=== PATIENT | female | born 1990 ===

== ENCOUNTER 2022-04-15 11:10 | Inpatient (IN) | payer SELFPAY ==
[2022-04-15] MEDS ORDERED: TERBUTALINE 1 MG/1 ML INJ SUB-Q PRN (12:52)
[2022-04-15] MEDS: LACTATED RINGERS 1,000 ML IV SCH ×3 (13:42→16:02)
[2022-04-15] MEDS ORDERED: LOPERAMIDE 2 MG CAP PO PRN (14:00)
[2022-04-15] MEDS ORDERED: AMPICILLIN/NS 1 GM/50 ML 1 GM/50 ML BAG IV SCH (14:00)
[2022-04-15] MEDS ORDERED: ONDANSETRON 4 MG/2 ML INJ IV PRN ×2 (14:00→18:34)
[2022-04-15] MEDS ORDERED: miSOPROStol 200 MCG TAB PR PRN (14:00)
[2022-04-15] MEDS ORDERED: OXYTOCIN DRIP 30 UNITS/500 ML BAG IV SCH ×3 (14:00→19:00)
[2022-04-15] MEDS ORDERED: fentaNYL 100 MCG/2 ML INJ IV PRN (14:00)
[2022-04-15] MEDS ORDERED: BUTORPHANOL 2 MG/1 ML INJ IV PRN ×2 (14:00)
[2022-04-15] MEDS ORDERED: LIDOCAINE (2%) 20 MG/1 ML VIAL 20 ML MDV INFILTRATI NR (14:00)
[2022-04-15] MEDS ORDERED: METHYLERGONOVINE MALEATE 0.2 MG/ML VIAL IM PRN (14:00)
[2022-04-15] MEDS ORDERED: AMPICILLIN/NS 2 GM/100 ML 2 GM/100 ML BAG IV NR (14:00)
[2022-04-15] MEDS ORDERED: ACETAMINOPHEN 325 MG TAB PO PRN ×2 (14:00→18:34)
[2022-04-15] MEDS ORDERED: ePHEDrine SULFATE 50 MG/1 ML INJ IV PRN ×2 (14:00→14:44)
[2022-04-15] MEDS ORDERED: CARBOPROST TROMETHAMINE 250 MCG/1 ML INJ IM PRN (14:00)
[2022-04-15] MEDS ORDERED: OXYTOCIN 10 UNIT/1 ML INJ IM PRN (14:00)
[2022-04-15] MEDS ORDERED: NALOXONE 0.4 MG/1 ML INJ IV PRN ×2 (14:44→18:34)
[2022-04-15 14:52] LABS: Hematocrit 35.8 % (30.3-42.9); Hemoglobin 11.8 gm/dl (10.1-14.3); Mean Corpuscular HGB Conc 33 % (30-34); Mean Corpuscular Volume 70 fl (79-97); Platelet Count 256 K/mm3 (140-440); Red Blood Count 5.08 M/mm3 (3.65-5.03); Red Cell Distribution Width 14.5 % (13.2-15.2)
[2022-04-15] MEDS ORDERED: fentaNYL-BUPIV 2 MCG/ML-0.125% 200 MCG/100 ML BAG EPIDURAL SCH (15:00)
--- NOTE | 2022-04-15 15:43 | Progress Note ---
Labor Epidural - Labor Epidural Start Time: 15:15 Stop Time: 15:21 Performed by:: ENRIQUE MUELLER Procedure: Epidural Requested for Labor Pain. H&P and PT Chart reviewed and consent obtained. Time out performed and the procedure was explained, all questions answered. Patient was placed in a sitting position with monitors applied. The PTs back was prepped and draped in usual sterile fashion. The Skin was localized with 3 mL of 1% lidocaine at L3-L4. A 17-gauge Touhy epidural needle was advanced to LUIS with saline at 5 cm and no blood/CSF was noted via epidural needle. Epidural catheter was advanced to 13 cm. There was negative aspiration for blood and CSF in the catheter and negative response to a test dose of 3 ml 1.5% lidocaine w/ Epi and a sterile dressing was applied Patient tolerated the procedure well and there were no immediate complications noted.
--- NOTE | 2022-04-15 15:47 | Anesthesia Consultation ---
Anesthesia Consult and Med Hx Date of service: 04/15/22 - Airway Anesthetic Teeth Evaluation: Good ROM Head & Neck: Adequate Mental/Hyoid Distance: Adequate Mallampati Class: Class II Intubation Access Assessment: Probably Good - Pulmonary Exam CTA: Yes - Cardiac Exam Cardiac Exam: RRR - Pre-Operative Health Status ASA Pre-Surgery Classification: ASA2 Proposed Anesthetic Plan: Epidural - Pulmonary Hx Smoking: No Hx Asthma: No - Cardiovascular System Hx Hypertension: No - Central Nervous System Hx Seizures: No CVA: No Hx Psychiatric Problems: No - Endocrine Hx Renal Disease: No Hx Liver Disease: No Hx Thyroid Disease: No - Hematic Hx Anemia: Yes Hx Sickle Cell Disease: No - Other Systems Hx Alcohol Use: No Hx Substance Use: No Hx Cancer: No - Additional Comments Anesthesia Medical History Comments: no hx of anesthetic complications
[2022-04-15] MEDS ORDERED: ceFAZolin/Water 2 GM/20 ML 2 GM/20 ML SYRINGE IV ONE (17:09)
[2022-04-15] MEDS ORDERED: FAMOTIDINE 20 MG/2 ML INJ IV ONE (17:09)
[2022-04-15] MEDS ORDERED: METOCLOPRAMIDE 10 MG/2 ML INJ ONE (17:09)
[2022-04-15] MEDS ORDERED: BICITRA ORAL LIQD 30ML ONE (17:09)
[2022-04-15] MEDS ORDERED: ceFAZolin/STERILE WATER 2 GM/20 ML SYRINGE IV ONE (17:32)
--- NOTE | 2022-04-15 17:48 | History and Physical Report ---
History of Present Illness Date of examination: 04/15/22 (1700) Date of admission: 04/15/22 12:52 Diomedesshilpa Past History - Obstetrical History : 2 Medications and Allergies Allergies Allergy/AdvReac Type Severity Reaction Status Date / Time No Known Allergies Allergy Verified 04/15/22 12:55 Home Medications Medication Instructions Recorded Confirmed Last Taken Type Tablet 1 tab PO DAILY 04/15/22 04/15/22 2 Days Ago History ~04/13/22 Active Meds: Active Medications Acetaminophen (Acetaminophen 325 Mg Tab) 650 mg PO Q4H PRN PRN Reason: Pain, Mild (1-3) Butorphanol Tartrate (Butorphanol 2 Mg/1 Ml Inj) 1 mg IV Q2H PRN PRN Reason: Pain, Moderate(4-6) LABOR PAIN Butorphanol Tartrate (Butorphanol 2 Mg/1 Ml Inj) 2 mg IV Q2H PRN PRN Reason: Pain , Severe (7-10) Carboprost Tromethamine (Carboprost Tromethamine 250 Mcg/1 Ml Inj) 250 mcg IM ONCE PRN PRN Reason: Uterine Bleeding Stop: 04/15/22 23:00 Ephedrine Sulfate (Ephedrine Sulfate 50 Mg/1 Ml Inj) 10 mg IV Q2M PRN PRN Reason: Hypotension Ephedrine Sulfate (Ephedrine Sulfate 50 Mg/1 Ml Inj) 10 mg IV Q2M PRN PRN Reason: Hypotension Last Admin: 04/15/22 15:51 Dose: 10 mg Fentanyl (Fentanyl 100 Mcg/2 Ml Inj) 100 mcg IV Q2H PRN PRN Reason: Pain,Severe (7-10) LABOR PAIN Oxytocin/Sodium Chloride (Pitocin/Ns 30 Unit/500ml) 30 units in 500 mls @ 2 mls/hr IV TITR MENDOZA; Protocol Lactated Ringer's (Lactated Ringers) 1,000 mls @ 125 mls/hr IV DIRECT MENDOZA Last Admin: 04/15/22 16:02 Dose: 125 mls/hr Oxytocin/Sodium Chloride (Pitocin/Ns 30 Unit/500ml) 30 units in 500 mls @ 40 mls/hr IV TITR MENDOZA; Protocol Ampicillin Sodium (Ampicillin/Ns 2 Gm/100 Ml) 2 gm in 100 mls @ 100 mls/hr IV ONCE NR; Protocol Stop: 04/15/22 23:00 Ampicillin Sodium (Ampicillin/Ns 1 Gm/50 Ml) 1 gm in 50 mls @ 100 mls/hr IV Q4H MENDOZA; Protocol Fentanyl/Bupivacaine/Sodium Chlor (Fentanyl-Bupiv 2 Mcg/Ml-0.125%) 200 mcg in 100 mls @ 12 mls/hr EPIDURAL TITR MENDOZA; Protocol Last Admin: 04/15/22 15:54 Dose: 12 mls/hr Lidocaine (Lidocaine (2%) 20 Mg/1 Ml Vial 20 Ml Mdv) 20 ml INFILTRATI ONCE NR Stop: 04/15/22 23:00 Loperamide HCl (Loperamide 2 Mg Cap) 2 mg PO ONCE PRN PRN Reason: give with Hemabate Stop: 04/15/22 23:00 Methylergonovine Maleate (Methylergonovine Maleate 0.2 Mg/Ml Vial) 0.2 mg IM ONCE PRN PRN Reason: Uterine Bleeding Stop: 04/15/22 23:00 Mineral Oil (Mineral Oil 30 Ml Oral Liqd) 30 ml PO QHS PRN PRN Reason: Constipation Misoprostol (Misoprostol 200 Mcg Tab) 800 mcg AK ONCE PRN PRN Reason: Uterine Bleeding Stop: 04/15/22 23:00 Naloxone HCl (Naloxone 0.4 Mg/1 Ml Inj) 0.2 mg IV Q5MIN PRN PRN Reason: Respiratory sedation Ondansetron HCl (Ondansetron 4 Mg/2 Ml Inj) 4 mg IV Q8H PRN PRN Reason: Nausea And Vomiting Oxytocin (Oxytocin 10 Unit/1 Ml Inj) 10 unit IM ONCE PRN PRN Reason: Uterine Bleeding Stop: 04/15/22 23:00 - Vital Signs Vital signs: Vital Signs Pulse Pulse Ox 72 97 04/15/22 11:46 04/15/22 11:46 Temp Pulse Resp BP Pulse Ox 98.6 F 124 H 22 125/63 100 04/15/22 12:59 04/15/22 17:26 04/15/22 12:59 04/15/22 17:04 04/15/22 17:26 Results Result Diagrams: 04/15/22 14:07 Abnormal lab results 04/15/22 Range/Units 14:07 WBC 15.0 H (4.5-11.0) K/mm3 RBC 5.08 H (3.65-5.03) M/mm3 MCV 70 L (79-97) fl MCH 23 L (28-32) pg All other labs normal.
[2022-04-15] MEDS ORDERED: SODIUM CHLORIDE 0.9% IRR 1,500 ML BOTTLE IR ONE (17:49)
[2022-04-15] MEDS ORDERED: WATER FOR IRRIG STERILE 1,500 ML BOTTLE IR ONE (17:49)
--- NOTE | 2022-04-15 18:33 | Operative Report ---
Operative Report Operative Report: Date of surgery: April 15, 2022 Preoperative diagnoses: Active labor, 40+ weeks, intolerance of labor Postoperative diagnoses: The same. Nuchal cord, meconium staining Operation: Lower segment transverse delivery Surgeon:Mick Lee MD [employer]ed Circuit Board Preassembler: Whit Tuttle CRNA Anesthesia: Spinal block Estimated blood loss: 300 mL Complications: None Findings: Live baby boy, 8 pounds 15, Apgars 8/9. The ovaries fallopian tubes and the uterus were grossly normal. Procedure in detail: The patient was taken to the operating room and given a spinal block. Patient was placed in the straight supine position and a Raza catheter was inserted. The patient was prepped in the abdomen. The drapes were placed. A timeout was done. With the go ahead from the software application tester, a Pfannenstiel incision was made. This incision was carried across the subcutaneous layer to the fascia which was also divided transversely. The recti abdominis muscle flaps were stripped from the fascia using a combination of blunt and sharp dissections. The muscles were in the midline to gain access to the anterior parietal peritoneum which was divided after excluding any underlying viscera. The access to the peritoneal cavity was then widened by manual stretching. The bladder blade was applied. The utero vesicle peritoneal flap was divided transversely allowing the bladder to be displaced caudally. The uterine incision was placed in the lower segment transversely. The uterine incision was carried to the decidual layer. The uterine incision was extended on both sides using the bandage scissors. The amniotic sac was ruptured with clear fluid. The head was lifted out of the false maternal pelvis and delivered through the incision using fundal pressure. The airways were bulb suctioned beginning with the mouth. Continuing fundal pressure combined with traction on the mandibular processes of the jaw delivered the rest of the baby. The umbilical cord was double clamped and divided. The baby was carefully transferred to the pediatric team. The placenta was manually removed from the uterine cavity. The uterine cavity was explored and was empty of any placental remnants. The uterine incision was repaired in 2 layers with #1 Vicryl. The surgical line on the uterus was hemostatic. Blood and clots were cleared from the peritoneal cavity. The anterior parietal peritoneum was repaired with #1 Vicryl. The fascia was repaired with #1 Vicryl. The subcutaneous layer was made hemostatic using the Bovie before the skin was closed subcuticularly with 4-0 Vicryl. There were no complications. The estimated blood loss was 300 mL. All sponges and instrument counts were correct. Patient was safely transferred to the recovery room.
[2022-04-15] MEDS ORDERED: KETOROLAC 30 MG/1 ML INJ IV PRN ×2 (18:34)
[2022-04-15] MEDS ORDERED: LANOLIN/ZINC/DIMETHICONE (LANSINOH) 7 GM TP PRN (18:34)
[2022-04-15] MEDS ORDERED: WITCH HAZEL/ GLYCERIN PAD TP PRN (18:34)
[2022-04-15] MEDS ORDERED: MORPHINE 4 MG/1 ML INJ IV PRN (18:34)
[2022-04-15] MEDS ORDERED: IBUPROFEN 600 MG TAB PO PRN (18:34)
[2022-04-15] MEDS ORDERED: MAGNESIUM HYDROXIDE (MOM) ORAL LIQD UDC PO PRN (18:34)
[2022-04-15] MEDS ORDERED: SENNOSIDES 8.6 MG TAB PO PRN (18:34)
[2022-04-15] MEDS ORDERED: MORPHINE 2 MG/1 ML INJ IV PRN (18:34)
[2022-04-15] MEDS ORDERED: PROMETHAZINE 25 MG RECT SUPP PR PRN (18:34)
[2022-04-15] MEDS ORDERED: HYDROcodone/ACETAMINOPHEN 5-325 MG TAB PO PRN (18:34)
[2022-04-15] MEDS ORDERED: SIMETHICONE 80 MG CHEW TAB PO PRN (18:34)
--- NOTE | 2022-04-15 19:16 | Anesthesia Day of Surgery ---
Anesthesia Day of Surgery - Day of Surgery Patient Examined: Yes Patient H&P Reviewed: Yes Patient is NPO: Yes
[2022-04-15] MEDS ORDERED: MINERAL OIL 30 ML ORAL LIQD PO PRN (22:00)
[2022-04-16] MEDS: ceFAZolin/NS 1 GM/50 ML 1 GM/50 ML BAG IV SCH (03:49)
[2022-04-16] MEDS ORDERED: D5W/LACTATED RINGERS 1,000 ML IV SCH (04:00)
--- NOTE | 2022-04-16 08:46 | Progress Note ---
Assessment and Plan A: POD # 1 - stable P: Continue post-op care Subjective - Subjective Date of service: 04/16/22 Principal diagnosis: Primary for distress- POD #1 Interval history: Feeling ok, no complaints Patient reports: appetite normal [place]: doing well Objective - Vital Signs Latest vital signs: Vital Signs Temp Pulse Resp BP BP BP Pulse Ox 04/16/22 05:11 98.4 F 65 18 99/50 96 04/15/22 23:51 98.4 F 63 18 131/61 97 04/15/22 20:40 99.1 F 78 18 115/63 96 04/15/22 20:33 86 18 116/64 97 04/15/22 20:04 67 16 113/61 98 04/15/22 19:32 87 18 141/98 97 04/15/22 19:27 71 16 120/62 98 04/15/22 19:21 04/15/22 19:06 72 17 116/59 98 04/15/22 18:40 97.1 F L 04/15/22 17:26 124 H 100 04/15/22 17:23 125 H 92 04/15/22 17:21 118 H 100 04/15/22 17:16 123 H 100 04/15/22 17:11 125 H 100 04/15/22 17:06 80 100 04/15/22 17:04 82 125/63 04/15/22 17:01 73 98 04/15/22 16:56 66 100 04/15/22 16:51 65 100 04/15/22 16:49 64 121/70 04/15/22 16:46 69 100 04/15/22 16:41 64 100 04/15/22 16:36 69 98 04/15/22 16:35 62 96/55 04/15/22 16:31 67 97 04/15/22 16:26 63 96 04/15/22 16:21 64 97 04/15/22 16:18 63 97/50 04/15/22 16:16 62 97 04/15/22 16:11 65 97 04/15/22 16:06 82 98 04/15/22 16:01 66 100 04/15/22 16:00 64 110/53 04/15/22 15:56 64 100 04/15/22 15:55 60 113/53 04/15/22 15:51 65 88/45 100 04/15/22 15:46 72 96 04/15/22 15:44 64 88/49 04/15/22 15:41 67 89/45 98 04/15/22 15:37 73 106/53 04/15/22 15:36 72 99 04/15/22 15:35 67 112/55 04/15/22 15:32 67 107/58 04/15/22 15:31 71 99 04/15/22 15:29 69 113/54 04/15/22 15:26 95 H 99 04/15/22 15:25 71 116/63 04/15/22 15:22 80 122/67 04/15/22 15:21 85 99 04/15/22 15:20 87 125/65 04/15/22 15:16 91 H 99 04/15/22 15:15 77 124/62 04/15/22 15:11 84 96 04/15/22 15:06 88 99 04/15/22 15:01 65 100 04/15/22 14:56 76 100 04/15/22 14:51 69 99 04/15/22 14:46 64 99 04/15/22 14:41 77 98 04/15/22 14:36 69 98 04/15/22 14:31 75 98 04/15/22 14:26 95 04/15/22 14:17 76 99 04/15/22 14:12 74 97 04/15/22 14:07 69 98 04/15/22 14:02 90 98 04/15/22 13:57 64 99 04/15/22 13:52 85 97 04/15/22 13:47 77 99 04/15/22 13:42 79 97 04/15/22 13:37 89 98 04/15/22 13:32 74 98 04/15/22 13:27 73 97 04/15/22 13:22 67 97 04/15/22 13:17 72 98 04/15/22 13:12 76 98 04/15/22 13:07 71 98 04/15/22 13:02 72 98 04/15/22 12:59 98.6 F 22 99 04/15/22 12:57 71 98 04/15/22 12:52 72 97 04/15/22 12:49 72 100/56 04/15/22 12:47 71 98 04/15/22 12:36 69 96 04/15/22 12:31 66 98 04/15/22 12:26 68 98 04/15/22 12:21 72 98 04/15/22 12:16 67 98 04/15/22 12:11 73 96 04/15/22 12:06 66 97 04/15/22 12:01 78 98 04/15/22 11:56 66 98 04/15/22 11:51 70 98 04/15/22 11:49 78 18 110/59 98 04/15/22 11:48 69 110/59 04/15/22 11:46 72 97 Pulse Ox 04/16/22 05:11 04/15/22 23:51 04/15/22 20:40 96 04/15/22 20:33 04/15/22 20:04 04/15/22 19:32 04/15/22 19:27 04/15/22 19:21 100 04/15/22 19:06 04/15/22 18:40 04/15/22 17:26 04/15/22 17:23 04/15/22 17:21 04/15/22 17:16 04/15/22 17:11 04/15/22 17:06 04/15/22 17:04 04/15/22 17:01 04/15/22 16:56 04/15/22 16:51 04/15/22 16:49 04/15/22 16:46 04/15/22 16:41 04/15/22 16:36 04/15/22 16:35 04/15/22 16:31 04/15/22 16:26 04/15/22 16:21 04/15/22 16:18 04/15/22 16:16 04/15/22 16:11 04/15/22 16:06 04/15/22 16:01 04/15/22 16:00 04/15/22 15:56 04/15/22 15:55 04/15/22 15:51 04/15/22 15:46 04/15/22 15:44 04/15/22 15:41 04/15/22 15:37 04/15/22 15:36 04/15/22 15:35 04/15/22 15:32 04/15/22 15:31 04/15/22 15:29 04/15/22 15:26 04/15/22 15:25 04/15/22 15:22 04/15/22 15:21 04/15/22 15:20 04/15/22 15:16 04/15/22 15:15 04/15/22 15:11 04/15/22 15:06 04/15/22 15:01 04/15/22 14:56 04/15/22 14:51 04/15/22 14:46 04/15/22 14:41 04/15/22 14:36 04/15/22 14:31 04/15/22 14:26 04/15/22 14:17 04/15/22 14:12 04/15/22 14:07 04/15/22 14:02 04/15/22 13:57 04/15/22 13:52 04/15/22 13:47 04/15/22 13:42 04/15/22 13:37 04/15/22 13:32 04/15/22 13:27 04/15/22 13:22 04/15/22 13:17 04/15/22 13:12 04/15/22 13:07 04/15/22 13:02 04/15/22 12:59 99 04/15/22 12:57 04/15/22 12:52 04/15/22 12:49 04/15/22 12:47 04/15/22 12:36 04/15/22 12:31 04/15/22 12:26 04/15/22 12:21 04/15/22 12:16 04/15/22 12:11 04/15/22 12:06 04/15/22 12:01 04/15/22 11:56 04/15/22 11:51 04/15/22 11:49 04/15/22 11:48 04/15/22 11:46 Intake and Output 04/15/22 04/16/22 04/16/22 22:59 06:59 14:59 Intake Total 2450 240 Output Total 900 1500 Balance 1550 -1260 Intake: IV 2450 Lactated Ringers 1,000 ml 850 @ 125 mls/hr IV DIRECT MENDOZA Rx#:[id number] Intake, Free Water 240 Output: Urine 900 1500 Indwelling Catheter 1500 Other: Total, Output Amount 600 Estimated Blood Loss 460 - Exam Breasts: Present: deferred Cardiovascular: Present: Regular rate Lungs: Present: Clear to auscultation Abdomen: Present: soft Vulva: both: normal Uterus: Present: fundal height below umbilicus Deep Tendon Reflex Grade: Normal +2 Incision: Present: dressed - Labs Labs: Abnormal lab results 04/15/22 Range/Units 14:07 WBC 15.0 H (4.5-11.0) K/mm3 RBC 5.08 H (3.65-5.03) M/mm3 MCV 70 L (79-97) fl MCH 23 L (28-32) pg
[2022-04-16] MEDS: IBUPROFEN 800 MG TAB PO PRN ×2 (09:31→15:18)
[2022-04-16] MEDS: PRENATAL VIT27-FE FUMARATE-FOLIC ACID VIT TAB PO SCH (09:35)
[2022-04-16] MEDS ORDERED: ceFAZolin/NS 1 GM/50 ML 1 GM/50 ML BAG IV SCH (11:00)
[2022-04-16 14:49] LABS: Hematocrit 31.5 % (30.3-42.9); Hemoglobin 9.9 gm/dl (10.1-14.3)
[2022-04-17] MEDS: ceFAZolin/NS 1 GM/50 ML 1 GM/50 ML BAG IV SCH (04:45)
--- NOTE | 2022-04-17 10:31 | Progress Note ---
Assessment and Plan A: POD #2 Asymptomatic Anemia P: Follow Routine Orders Increase Dietary Iron D/C home today per patient request RTO in one week Subjective - Subjective Date of service: 04/17/22 Principal diagnosis: Primary for distress- POD #1 Patient reports: appetite normal, voiding normally, pain well controlled, flatus, bowel movement, ambulating normally : doing well, bottle feeding (and ) Objective - Vital Signs Latest vital signs: Vital Signs Temp Pulse Resp BP BP Pulse Ox Pulse Ox 04/17/22 08:01 98.0 F 62 16 96/50 96 04/17/22 00:20 97.8 F 90 18 105/58 97 04/16/22 21:13 98 04/16/22 16:50 97.6 F 67 107/52 04/16/22 11:59 97.7 F 70 18 107/65 97 Intake and Output 04/16/22 04/17/22 04/17/22 22:59 06:59 14:59 Intake Total 1220 120 240 Output Total 700 Balance 520 120 240 Intake: IV 1100 ANCEF/NS 1 GM/50 ML 1 gm 50 In 50 ml @ 100 mls/hr IV Q8H MENDOZA Rx#:[id number] ANCEF/NS 1 GM/50 ML 1 gm 50 In 50 ml @ 100 mls/hr IV Q8H MENDOZA Rx#:[id number] D5lr 1,000 ml @ 125 mls/ 1000 hr IV DIRECT MENDOZA Rx#: [id number] Oral 120 120 240 Output: Urine 700 Void 700 Other: Total, Intake Amount 120 120 240 Total, Output Amount 700 # Voids Void 1 1 1 - Exam Breasts: Present: normal Cardiovascular: Present: Regular rate Lungs: Present: Clear to auscultation, Normal air movement Abdomen: Present: normal appearance, soft, normal bowel sounds Uterus: Present: normal, firm, fundal height below umbilicus Extremities: Present: normal Incision: Present: normal, dry, intact - Labs Labs: Abnormal lab results 04/16/22 Range/Units 13:53 Hgb 9.9 L (10.1-14.3) gm/dl
--- NOTE | 2022-04-17 10:32 | Discharge Summary ---
Providers - Providers Date of Admission: 04/15/22 12:52 Date of discharge: 04/17/22 Attending physician: THEODORE BAILEY MD Primary care physician: THEODORE BAILEY MD Hospitalization Reason for admission: active labor Delivery: Procedure: primary low transverse Episiotomy: none Laceration: none Incision: normal, dry, intact Other procedures: none complications: none Discharge diagnosis: IUP at term delivered baby: male Condition at discharge: Good Disposition: 01 HOME / SELF CARE / HOMELESS Plan - Provider Discharge Summary Activity: routine, no sex for 6 weeks, no heavy lifting 4 weeks, no strenuous exercise Diet: routine Instructions: routine Additional instructions: [] Smoking cessation referral if applicable(refer to patient education folder for contact #) [] Refer to [facility] Booklet Call your doctor immediately for: * Fever > 100.5 * Heavy vaginal bleeding ( >1 pad per hour) * Severe persistent headache * Shortness of breath * Reddened, hot, painful area to leg or breast * Drainage or odor from incision. * Keep incision clean and dry at all times and follow doctor's instructions regarding bathing/showering - Follow up plan Follow up: THEODORE BAILEY MD [Primary Care Provider] - 7 Days
[2022-04-17] MEDS: PRENATAL VIT27-FE FUMARATE-FOLIC ACID VIT TAB PO SCH (10:39)
--- NOTE | 2022-04-17 14:51 | Post Anesthesia Evaluation ---
- Post Anesthesia Evaluation Patient Participated: Yes Airway Patent: Yes Stable Respiratory Function: Yes Nausea/Vomiting: No Temp > 96.8F: Yes Pain Manageable: Yes Adequeate Hydration: Yes Anesthesia Complications: No Block Receding Appropriately: Yes Patient on Ventilator: No
[2022-04-17 15:34] VITALS: BP 109/62
== END 2022-04-17 15:05 | disposition home or self-care (01) | DRG 788 ==
LOC: TRG 11:10 → APU 11:11 → LD 12:37 → TRG 13:55 → APU 18:04 → OB 21:45
PROVIDERS: ADMIT Obstetrics & Gynecology Gynecology; ATTEND Obstetrics & Gynecology Gynecology
PROC: 10D00Z1 Extraction of Products of Conception, Low, Open Approach (ICD-10-PCS; principal; 2022-04-15)
DX: O77.0 Labor and delivery complicated by meconium in amniotic fluid (principal); O69.81X0 Labor and delivery complicated by cord around neck, without compression, not applicable or unspecified; Z3A.40 40 weeks gestation of pregnancy; Z37.0 Single live birth; Z20.822 Contact with and (suspected) exposure to COVID-19; O90.81 Anemia of the puerperium
CPT/HCPCS: 36415; 85014; 85018; 85027; 86850; 86900; 86901; 88307; G0378; J3490; J7060; J0690; J1885; J3105; J7120; J7121; U0003